=== PATIENT | male | born 1985 | race Caucasian/White ===

== ENCOUNTER 2017-10-03 11:55 | Emergency (ER) | payer SELFPAY ==
[~2017-10-03] VITALS: Ht 175.3 cm; Wt 90.6 kg
[2017-10-03 12:14] VITALS: BP 104/63; PULSE 107; RESP 20; TEMP 99.9; O2SAT 95
[2017-10-03] MEDS ORDERED: ONDANSETRON HCL 4 MG/2 ML VIAL IV PUSH ONE (13:15)
[2017-10-03] MEDS ORDERED: DIPHENOXYLATE/ATROPINE 2.5 MG/0.025 MG TAB PO ONE (13:15)
[2017-10-03] MEDS ORDERED: SODIUM CHLOR 0.9% 1000 ML INJ 1,000 ML IV SCH (13:15)
[2017-10-03] MEDS ORDERED: LOMO2.5T PO (13:17)
[2017-10-03] MEDS ORDERED: ZOFR4TAB3 SL (13:17)
--- NOTE | 2017-10-03 13:17 | PD ---
HPI Chief Complaint: GI Complaint Time Seen by Provider: 12:49 Travel History International Travel<30 days: No Contact w/Intl Traveler<30days: No Traveled to known affect area: No History of Present Illness HPI 32-year-old male complains of nausea vomiting diarrhea. Patient states that symptoms started last night. Patient states that he intermittent abdominal cramping with nausea vomiting. Patient denies any fever chills. Patient denies any chest pain or shortness of breath. Patient denies any blood or mucus in the stool. PFSH Past Medical History Diminished Hearing: No Medical other: Yes (pinched nerve in neck) Tetanus Vaccination: Unknown Influenza Vaccination: No Past Surgical History Genitourinary Surgery: Yes (vasectomy) Other Surgery: Yes (ganglion cyst removed) Social History Alcohol Use: No Tobacco Use: No Substance Use: No Allergies-Medications (Allergen,Severity, Reaction): Coded Allergies: No Known Allergies (Unverified , 10/03/17) Reported Meds & Prescriptions Reported Meds & Active Scripts Active Lomotil (Diphenoxylate-Atropine) 2.5-0.025 Mg Tab 1 Tab PO Q6H PRN Zofran Odt (Ondansetron Odt) 4 Mg Tab 4 Mg SL Q6HR PRN Review of Systems General / Constitutional: No: Fever Eyes: No: Visual changes HENT: No: Headaches Cardiovascular: No: Chest Pain or Discomfort Respiratory: No: Shortness of Breath Gastrointestinal: Positive: Nausea, Vomiting, Diarrhea, Abdominal Pain Genitourinary: No: Dysuria Musculoskeletal: No: Pain Skin: No Rash Neurologic: No: Weakness Psychiatric: No: Depression Endocrine: No: Polydipsia Hematologic/Lymphatic: No: Easy Bruising Physical Exam Narrative GENERAL: Well-nourished, well-developed patient. SKIN: Focused skin assessment warm/dry. HEAD: Normocephalic. EYES: No scleral icterus. No injection or drainage. NECK: Supple, trachea midline. No JVD or lymphadenopathy. CARDIOVASCULAR: Regular rate and rhythm without murmurs, gallops, or rubs. RESPIRATORY: Breath sounds equal bilaterally. No accessory muscle use. GASTROINTESTINAL: Abdomen soft, non-tender, nondistended. MUSCULOSKELETAL: No cyanosis, or edema. BACK: Nontender without obvious deformity. No CVA tenderness. Neurologic exam normal. Data Data Last Documented VS Vital Signs Date Time Temp Pulse Resp B/P (MAP) Pulse Ox O2 Delivery O2 Flow Rate FiO2 10/03/17 12:14 99.9 107 20 104/63 (77) 95 Orders Orders Sodium Chlor 0.9% 1000 Ml Inj (Ns 1000 M (10/03/17 13:15) Ondansetron Inj (Zofran Inj) (10/03/17 13:15) Diphenoxylate/Atropine Tab (Lomotil Tab) (10/03/17 13:15) Basic Metabolic Panel (Bmp) (10/03/17 13:05) Labs Laboratory Tests Test 10/03/17 13:00 Blood Urea Nitrogen 15 MG/DL Creatinine 1.20 MG/DL Random Glucose 104 MG/DL Calcium Level 8.3 MG/DL Sodium Level 138 MEQ/L Potassium Level 4.0 MEQ/L Chloride Level 103 MEQ/L Carbon Dioxide Level 28.6 MEQ/L Anion Gap 6 MEQ/L Estimat Glomerular Filtration Rate 69 ML/MIN MDM Medical Decision Making Medical Screen Exam Complete: Yes Emergency Medical Condition: Yes Interpretation(s) 1427 PM. BMP within normal limit. Differential Diagnosis Differential diagnosis including gastroenteritis, electrolyte imbalance, dehydration. Narrative Course 32-year-old male with nausea vomiting diarrhea abdominal cramping. Normal saline solution 1 L IV bolus. Zofran 4 mg IV. Lomotil one tablet by mouth given. Diagnosis Primary Impression: Gastroenteritis Patient Instructions: General Instructions Additional Instructions: Clear fluid for 24 hours and advance diet as tolerated. Take medication as needed. Follow-up with personal physician. Return if persistent problem or worse. Med/Other Pt SpecificInfo: Prescription(s) given Scripts Diphenoxylate-Atropine (Lomotil) 2.5-0.025 Mg Tab 1 TAB PO Q6H Y for DIARRHEA, #12 TAB 0 Refills Prov: Leo Acosta MD 10/03/17 Ondansetron Odt (Zofran Odt) 4 Mg Tab 4 MG SL Q6HR Y for Nausea/Vomiting, #10 TAB 0 Refills Prov: Leo Acosta MD 10/03/17 Disposition: 01 DISCHARGE HOME Condition: Stable Leo Acosta MD Oct 03, 2017 13:17
[2017-10-03 13:27] LABS: BICARBONATE 28.6 MEQ/L (21.0-32.0)
[2017-10-03 14:40] VITALS: BP 112/67; PULSE 94; RESP 16; O2SAT 98
[2017-10-03] MEDS ORDERED: SODIUM CHLOR 0.9% 1000 ML INJ 1,000 ML IV ONE (14:45)
[2017-10-03 15:35] VITALS: BP 138/90
== END 2017-10-03 15:43 | disposition home or self-care (01) ==
LOC: PHED 11:55
DX: K52.9 Noninfective gastroenteritis and colitis, unspecified (principal)
CPT/HCPCS: 80048; 96361; 96374; 99284; J2405; J7030